=== PATIENT | male | born 1975 | race Native Hawaiian/Other Pacific Islander ===

== ENCOUNTER 2017-02-07 17:44 | Emergency (ER) | payer OTHER ==
[2017-02-07 17:55] VITALS: TEMP 97.4
[2017-02-07] MEDS ORDERED: Bacitracin 500 Units/gm Oint Foilpak UD TOP ONE (18:06)
[2017-02-07] MEDS ORDERED: Lidocaine 1% Inj (20ml) INFIL STA (18:06)
[2017-02-07] MEDS ORDERED: Bacitracin 500 Units/gm Oint Foilpak UD ONE (18:10)
[2017-02-07] MEDS ORDERED: Lidocaine 1% Inj (20ml) ONE (18:11)
--- NOTE | 2017-02-07 18:39 | C.PDOC ---
History Of Present Illness 41 year old male presents to ED with complaints of sustaining laceration to left pinky finger just prior to arrival. He reports he was cutting sweet potatoes and the knife cut his finger. Unsure of tetanus status Time Seen by Provider: 02/07/17 17:58 Chief Complaint (Nursing): Upper Extremity Problem/Injury History Per: Patient History/Exam Limitations: no limitations Onset/Duration Of Symptoms: Sudden Onset Location Of Injury: Left: Hand (pinky digit laceration) Past Medical History Reviewed: Historical Data, Nursing Documentation, Vital Signs Vital Signs: Last Vital Signs Temp 97.4 F L 02/07/17 17:51 Pulse 65 02/07/17 18:52 Resp 20 02/07/17 18:52 BP 145/95 H 02/07/17 18:52 Pulse Ox 99 02/07/17 18:52 - Medical History PMH: Asthma Other PMH: gout Other Surgeries: Lasik Family History: States: Unknown Family Hx - Social History Hx Alcohol Use: Yes Hx Substance Use: No - Immunization History Hx Tetanus Toxoid Vaccination: No Hx Influenza Vaccination: Yes (2017) Hx Pneumococcal Vaccination: No Review Of Systems Except As Marked, All Systems Reviewed And Found Negative. Skin: Positive for: Other (finger laceration) Physical Exam - Physical Exam Appears: Non-toxic, No Acute Distress Skin: Warm, Dry, Other (1.5cm curvilinear laceration to left 5th digit fingertip with mild active bleeding) Head: Atraumatic, Normacephalic Eye(s): bilateral: Normal Inspection Neck: Normal ROM Extremity: Normal ROM, No Tenderness, No Deformity, No Swelling Pulses: Left Radial: Normal Neurological/Psych: Oriented x3, Normal Speech ED Course And Treatment O2 Sat by Pulse Oximetry: 100 Laceration - Laceration Repair left hand Wound Length (In cm): 1.5 Description Of Wound: Linear, Clean Wound Cleansed With: Betadine, Sterile Saline Anesthesia: Lidocaine 1% Wound Examination: Irrigated With Saline, No FB With Wound Exploration, No Tendon Injury With Wound Exploration Wound Closure: Suture Suture Technique And Material Used: Interrupted (4), Nylon (4-0) Wound Complexity: Simple Medical Decision Making Medical Decision Making: Patient with finger laceration. Area prepped with betadyne and anesthesia achieved via digital block using lidocaine 1%. Wound was irrigated with NS. No tendon involvement. Wound closed with 4 interrupted sutures. Bacitracin and dressing was applied. Patient tolerated well.Patient given instructions on wound care and recommend follow up for wound check in 2 days. Disposition Counseled Patient/Family Regarding: Diagnosis, Need For Followup - Disposition Disposition: HOME/ ROUTINE Disposition Time: 18:39 Condition: STABLE Additional Instructions: Remove dressing in 24 hours. Keep area clean and dry. May wash gently with soap and water, do not use alcohol or iodine solution. Change dressing 1-2 times daily. Return to ER if fever occurs, redness or swelling around wound, pus in the wound. Please follow up with your primary doctor, clinic, or urgent care for suture removal in 10 days Instructions: Care For Your Stitches (ED) Forms: [facility] (Scottish) - POA Present On Arrival: None - Clinical Impression Clinical Impression: Finger laceration
[2017-02-07 18:53] VITALS: BP 145/95; PULSE 65; RESP 20
[2017-02-07 19:05] VITALS: O2SAT 100
== END 2017-02-07 18:55 | disposition home or self-care (01) ==
LOC: C.ER 17:44
DX: S61.217A Laceration without foreign body of left little finger without damage to nail, initial encounter (principal); W26.0XXA Contact with knife, initial encounter; Y93.G1 Activity, food preparation and clean up; Y92.89 Other specified places as the place of occurrence of the external cause; Z23 Encounter for immunization